=== PATIENT | female | born 1970 | race Caucasian/White ===

== ENCOUNTER → 2018-05-13 | Outpatient (CLI) | payer OTHER ==
[~2018-05-13] MED LIST: ADVIL,NUPRIN,M200 MG PO; ATENOLOL25 MG PO; CALCIUM 600 +1 EAC2 PO; ENDOCET 5-3251 EACH PO; FLONASE16 G1 BOTH NARES; HYDROCHLOROTHIA25 MG PO; IBUPROFEN800 MG PO; LISINOPRIL10 MG PO; METFORMIN HCL500 MG PO; MULTIPLE VITAM1 EACH PO; SINGULAIR10 MG PO; SYNTHROID125 MCG PO; TYLENOL EXTRA500 MG PO
== END | disposition home or self-care (01) ==
LOC: EKG 14:10
DX: Z01.810 Encounter for preprocedural cardiovascular examination (principal); M54.16 Radiculopathy, lumbar region
CPT/HCPCS: 93005